=== PATIENT | male | born 1975 | race Two or more races ===

== ENCOUNTER 2019-10-12 01:09 | Emergency (ER) | payer SELFPAY ==
[~2019-10-12] VITALS: Ht 170.2 cm; Wt 73.0 kg
[2019-10-12 01:12] VITALS: BP 120/67
[2019-10-12] MEDS ORDERED: ONDANSETRON HCL 4MG/2ML INJ IV ONE (02:45)
[2019-10-12] MEDS ORDERED: MORPHINE SULFATE 4 MG/ML CPJ (NOT FOR IM USE) IV ONE (02:45)
== END 2019-10-12 02:43 | disposition left against medical advice (07) ==
LOC: ER 01:09
DX: Z53.21 Procedure and treatment not carried out due to patient leaving prior to being seen by health care provider (principal)
CPT/HCPCS: 93005

== ENCOUNTER 2019-12-11 07:09 | Emergency (ER) | payer SELFPAY ==
[~2019-12-11] VITALS: Ht 170.2 cm; Wt 60.0 kg
[2019-12-11 07:40] VITALS: BP 111/70
[2019-12-11] MEDS ORDERED: IBUPROFEN 600MG TABLET PO ONE (08:00)
== END 2019-12-11 08:32 | disposition home or self-care (01) ==
LOC: ER 07:09
DX: S80.12XA Contusion of left lower leg, initial encounter (principal); F12.10 Cannabis abuse, uncomplicated; W22.8XXA Striking against or struck by other objects, initial encounter; Y93.89 Activity, other specified; Y92.89 Other specified places as the place of occurrence of the external cause; Y99.8 Other external cause status
CPT/HCPCS: 99283

== ENCOUNTER 2020-01-15 02:52 | Emergency (ER) | payer SELFPAY | END 2020-01-15 05:49 | disposition left against medical advice (07) | LOC: ER 02:52 | DX: R06.02 Shortness of breath (principal); Z53.21 Procedure and treatment not carried out due to patient leaving prior to being seen by health care provider ==

== ENCOUNTER 2020-03-04 07:03 | Emergency (ER) | payer SELFPAY ==
[~2020-03-04] VITALS: Ht 170.2 cm; Wt 73.0 kg
[2020-03-04 07:58] VITALS: BP 96/57
[2020-03-04] MEDS ORDERED: ACETAMINOPHEN 325MG TABLET PO ONE (08:30)
[2020-03-04] MEDS ORDERED: BACITRACIN ZINC OINT UDPKT TOP ONE (09:00)
== END 2020-03-04 09:27 | disposition home or self-care (01) ==
LOC: ER 07:03
DX: S21.112D Laceration without foreign body of left front wall of thorax without penetration into thoracic cavity, subsequent encounter (principal); S27.9XXD Injury of unspecified intrathoracic organ, subsequent encounter; X58.XXXD Exposure to other specified factors, subsequent encounter; Z48.02 Encounter for removal of sutures
CPT/HCPCS: 99281

== ENCOUNTER 2020-04-15 23:43 | Emergency (ER) | payer MEDICAID ==
[~2020-04-15] VITALS: Ht 170.2 cm; Wt 73.0 kg
[2020-04-16] MEDS ORDERED: AMOXICILLIN/POTASSIUM CLAVULANATE 875/125MG TAB PO ONE (01:00)
[2020-04-16] MEDS ORDERED: IBUPROFEN 600MG TABLET PO ONE (01:00)
[2020-04-16 01:46] VITALS: BP 137/88
== END 2020-04-16 02:09 | disposition home or self-care (01) ==
LOC: ER 23:43
DX: H60.92 Unspecified otitis externa, left ear (principal); F12.10 Cannabis abuse, uncomplicated
CPT/HCPCS: 99283

== ENCOUNTER 2020-05-03 13:12 | Emergency (ER) | payer MEDICAID ==
[~2020-05-03] VITALS: Ht 170.2 cm; Wt 61.0 kg
[2020-05-03 13:21] VITALS: BP 116/73
== END 2020-05-03 17:00 | disposition left against medical advice (07) ==
LOC: ER 13:48
DX: H92.03 Otalgia, bilateral (principal); Z53.21 Procedure and treatment not carried out due to patient leaving prior to being seen by health care provider